=== PATIENT | female | born 1945 | race Caucasian/White ===

== ENCOUNTER → 2019-01-07 11:59 | Outpatient (CLI) | payer MEDICARE, SELFPAY ==
--- NOTE | 2019-01-07 12:45 | DI.CT.S_ITS ---
PROCEDURE: CT ABDOMEN PELVIS WO/W CON INDICATIONS: gross hematuria TECHNIQUE: After the administration of oral contrast, 5 mm thick sections acquired from the diaphragms to the iliac crests. After the administration of intravenous contrast, 5 mm thick sections acquired from the diaphragms to the symphysis. 5 mm thick coronal and sagittal reformats were acquired. For radiation dose reduction, the following was used: automated exposure control, adjustment of mA and/or kV according to patient size. COMPARISON: None. FINDINGS: Image quality: Excellent. ABDOMEN: Lung bases: Lung bases are clear. Heart size is normal. Solid organs: Liver is normal in size and enhancement, but the precontrast imaging through the liver shows generalized moderate fatty infiltration. Splenic calcified granulomas are present, numerous and minute. Gallbladder contains at least 2 large gallstones, one of which measures up to 2.5 cm, peripherally calcified to a small degree. Biliary system is non-dilated. Pancreas enhances normally. Spleen is normal in size and enhancement. No adrenal nodules. Both kidneys are normal in size. No hydronephrosis or nephrolithiasis. No renal cortical mass lesion. Bowel and peritoneum: Stomach, small and large bowel loops are normal in caliber and wall thickness. No free fluid or air. Nodes and vessels: No retroperitoneal or mesenteric adenopathy by size criteria. Aorta and inferior vena are normal in caliber. Miscellaneous: No ventral hernias. PELVIS: Genitourinary: Bladder wall thickness is normal. The bladder contains a 2.4 x 3.4 cm densely calcified calculus centered to the left of midline, with a radiodensity measured at approximately 870 Hounsfield units in the calcified area. A relatively subtle finding is an eccentric protrusions from the left anterior border of this calcification as it abuts the bladder wall on the left laterally. There is mild low attenuation within the midportion of this presents against the bladder wall, and the definite cause for the calcification to be displaced anteriorly from a Terry dependent position is not seen (for example, prostatic hypertrophy with a large median lobe). This raises concern for whether this protuberance represents an adhesion to the bladder wall, which is noted to be asymmetrically thickened on the left in this area, measuring up to 1.3 cm while the bladder wall measures approximately 8 mm on the right in the same area. Miscellaneous: No inguinal hernias or adenopathy. Bones: No suspicious bony lesions. No vertebral body compression fractures. IMPRESSION: 1. There is an unusual finding within the bladder lumen, the presence of a large ovoid calcified structure measuring up to 2.4 x 3.4 cm with an eccentric protuberance along its left lateral border abutting the bladder wall (which is thickened in this area of apparent attachment). It is possible that the bladder wall thickening represents an area of urothelial malignancy with an unusual manifestation of dystrophic calcification having developed and increased in size over time as a result. Please note that the large intraluminal bladder calcification does not layer dependently within the bladder posteriorly, but appears suspended more anteriorly presumably by an adhesion to the area of wall thickening. Cystoscopy appears warranted. 2. Through the urinary tract more superiorly no calculus is found. No urothelial or renal cortical mass is seen. 3. Unrelated to the urinary tract is the finding of 2 moderately large gallstones within the gallbladder lumen without evidence of associated acute cholecystitis or biliary obstruction. Also, there is a finding at the spleen of multiple old calcified granulomas but no active granulomatous disease is suspected. Dictetated by: Jose Mancuso M.D. on 01/07/2019 at 13:52 Approved by: Jose Mancuso M.D. on 01/07/2019 at 14:21
== END ==
PROVIDERS: PCP Family Medicine; Visit Provider Urology
DX: R31.0 Gross hematuria (principal); N32.9 Bladder disorder, unspecified; K80.80 Other cholelithiasis without obstruction
CPT/HCPCS: 74178; Q9967

== ENCOUNTER → 2023-11-06 10:55 | Outpatient (CLI) | payer MEDICARE, SELFPAY ==
--- NOTE | 2023-11-06 10:57 | DI.ECHO.S_ITS ---
[place] [facility] : : [address] : [address] : : [id number] : : Phone: [phone] Echocardiogram Report + + :Name: ELIZABETH VALLES Study Date: 11/06/2023 Height: 63 in : :[facility] ReadingLocation: Weight: 173 lb : : Gender: Female BSA: 1.8 m2 : :: 1945 Age: 78 yrs BP: 146/75 mmHg: :Reason For Study: MURMUR, AORTIC STENOSIS : :Ordering Physician: ARMAAN, : :BRANDI Hoang Performed By: Nevaeh Cevallos : :Referring: BRANDI MORENO : + + Interpretation Summary The ejection fraction is estimated to be 60-65%. Diastolic parameters suggest probable normal left ventricular diastolic function and normal filling pressures. The right ventricle is normal in size and function. There is mild mitral regurgitation. There is mild to moderate aortic stenosis. Pulmonary artery pressures cannot be estimated because of the lack of a measurable TR jet velocity but the IVC suggests a CVP of around 3 mmHg. Procedure: A two-dimensional transthoracic echocardiogram with color flow and Doppler was performed. The study quality was technically adequate. There is no prior echocardiogram noted for this patient. The patient was in sinus rhythm with heart rates between 55-68 bpm during the exam. Left Ventricle: The left ventricle is normal in size and wall thickness. The ejection fraction is estimated to be 60-65%. Diastolic parameters suggest probable normal left ventricular diastolic function and normal filling pressures. Right Ventricle: The right ventricle is normal in size and function. Atria: The left atrial size is normal. Right atrial size is normal. There is no Doppler evidence for an interatrial shunt. Mitral Valve: The mitral valve leaflets appear mildly thickened, but open well. There is mild to moderate mitral annular calcification. There is mild mitral regurgitation. Aortic Valve: The aortic valve is trileaflet. The aortic valve is moderately calcified. There is mild to moderate aortic stenosis. The peak aortic velocity is 2.9 m/sec. The aortic valve mean gradient is 19 mmHg. The calculated aortic valve area is 1.1 cm2. There is trace aortic regurgitation. Tricuspid Valve: The tricuspid valve is normal in structure and function. There is trace tricuspid regurgitation. Pulmonary artery pressures cannot be estimated because of the lack of a measurable TR jet velocity but the IVC suggests a CVP of around 3 mmHg. Pulmonic Valve: The pulmonic valve leaflets are thin and pliable; valve motion is normal. There is trace pulmonic regurgitation. Great Vessels: The aortic root is normal size. The dimensions of the ascending aorta are normal. The IVC is of normal diameter and collapses greater than 50% with a sniff. This suggests a low right atrial pressure of 3 mm Hg. Pericardium/ Pleura There is no pericardial effusion. There is no pleural effusion. MMode/2D Measurements & Calculations LVIDd: 4.4 cm LVOT diam: 2.0 cm LVIDs: 2.8 cm Ao root diam: 2.7 cm FS: 37.1 % asc Aorta Diam: 3.2 cm IVSd: 1.1 cm Ao Arch Diam (Prox Trans): 2.6 cm LVPWd: 0.86 cm LV benson. diameter/BSA (cm/m^2): 2.4 LV sys. diameter/BSA (cm/m^2): 1.5 LA A2 area: 20.1 cm2 RA long axis: 4.8 cm LA A4 area: 19.3 cm2 RA area: 14.6 cm2 LA length (vol): 5.5 cm RA vol: 37.7 ml LA vol: 59.7 ml RA : 20.7 ml/m2 LA vol index: 32.8 ml/m2 IVC diam: 2.1 cm RVD1 (basal): 3.9 cm RVD2 (mid): 2.5 cm TAPSE: 2.4 cm Doppler Measurements & Calculations Ao V2 max: 285.4 cm/sec LVOT Max Daryn: 103.4 cm/sec Ao V2 mean: 205.8 cm/sec LV V1 max P.3 mmHg Ao max P.0 mmHg LV V1 VTI: 27.7 cm Ao mean P.3 mmHg SAMMY(I,D): 1.1 cm2 Ao V2 VTI: 73.4 cm SAMMY(V,D): 1.1 cm2 sev ratio: 0.38 SAMMY indexed to BSA (cm^2/m^2): 0.62 MV E max daryn: 72.9 cm/sec TR max daryn: 243.6 cm/sec MV A max daryn: 97.1 cm/sec TR max P.7 mmHg MV E/A: 0.75 PA V2 max: 111.1 cm/sec Med Peak E' Daryn: 5.4 cm/sec PA V2 mean: 80.8 cm/sec E/E' med: 13.6 PA mean P.8 mmHg Lat Peak E' Daryn: 7.0 cm/sec PA pr(Accel): 19.1 mmHg E/E' lat: 10.4 E/e' average: 12.0 MV dec time: 0.29 sec SV(LVOT): 82.9 ml Reading Physician:11:43 AM
== END ==
LOC: ECHO 10:56
PROVIDERS: PCP Nurse Practitioner Family; Referring Provider Internal Medicine Cardiovascular Disease; Visit Provider Internal Medicine Cardiovascular Disease
DX: I08.0 Rheumatic disorders of both mitral and aortic valves (principal)
CPT/HCPCS: 93306

== ENCOUNTER → 2024-07-27 10:54 | Outpatient (CLI) | payer MEDICARE, SELFPAY ==
--- NOTE | 2024-07-27 10:57 | DI.ECHO.S_ITS ---
[place] [facility]---------+ [facility] : : [address] : [address] : : [id number] : : Phone: [phone] Echocardiogram Report + + :Name: ELIZABETH VALLES Study Date: 07/27/2024 Height: 63 in : :[facility] ReadingLocation: Weight: 170 lb : : Gender: Female BSA: 1.8 m2 : :: 1945 Age: 79 yrs BP: 154/76 mmHg: :Reason For Study: AORTIC VALVE STENOSIS : :Ordering Physician: ARMAAN, : :BRANDI Hoang Performed By: Ren Mann : :Referring: BRANDI MORENO : + + Interpretation Summary The ejection fraction is estimated to be 65-70%. Grade II diastolic dysfunction. The left atrium is moderately dilated. The right ventricle is normal in size and function. There is moderate aortic stenosis. There is mild to moderate tricuspid regurgitation. The right ventricular systolic pressure is estimated to be at least 40 mmHg based on an estimated right atrial pressure of 3 mm Hg. Compared to the prior study 11/06/2023, the aortic valve gradient has increased. Procedure: A two-dimensional transthoracic echocardiogram with color flow and Doppler was performed. The study quality was technically good. Comparison is made with the echocardiogram of 11/06/2023. The patient was in normal sinus rhythm during the exam. Left Ventricle: The left ventricle is normal in size. Left ventricular wall thickness is borderline increased. There is no ventricular septal defect visualized. The ejection fraction is estimated to be 65-70%. There are no focal wall motion abnormalities. Diastolic parameters suggest a pseudonormalization pattern, consistent with probable elevated filling pressures. Right Ventricle: The right ventricle is normal in size and function. Atria: The left atrium is moderately dilated. The right atrium is borderline dilated. There is no Doppler evidence for an interatrial shunt. Mitral Valve: There is moderate mitral annular calcification. There is trace mitral regurgitation. Aortic Valve: The aortic valve is trileaflet. The aortic valve is mildly calcified. There is moderately reduced leaflet mobility. There is moderate aortic stenosis. The peak aortic velocity is 3.2 m/sec. The aortic valve mean gradient is 24.3 mmHg. The calculated aortic valve area is 1.3 cm2. There is trace aortic regurgitation. Tricuspid Valve: The tricuspid valve leaflets are thin and pliable. There is mild to moderate tricuspid regurgitation. The right ventricular systolic pressure is estimated to be at least 40 mmHg based on an estimated right atrial pressure of 3 mm Hg. Pulmonic Valve: The pulmonic valve is not well seen, but is grossly normal. There is trace pulmonic regurgitation. Great Vessels: The aortic root is normal size. The dimensions of the ascending aorta are normal. The pulmonary artery is normal size. The IVC is of normal diameter and collapses greater than 50% with a sniff. This suggests a low right atrial pressure of 3 mm Hg. Pericardium/ Pleura There is no pericardial effusion. There is no pleural effusion. MMode/2D Measurements & Calculations LVIDd: 4.3 cm LVOT diam: 2.1 cm LVIDs: 2.4 cm Ao root diam: 2.9 cm FS: 44.3 % asc Aorta Diam: 3.2 cm EPSS: 0.66 cm Ao Arch Diam (Prox Trans): 3.0 cm IVSd: 1.1 cm LVPWd: 1.1 cm LV benson. diameter/BSA (cm/m^2): 2.4 LV sys. diameter/BSA (cm/m^2): 1.3 LA A2 area: 22.2 cm2 RA long axis: 5.1 cm LA A4 area: 24.3 cm2 RA area: 16.7 cm2 LA length (vol): 6.2 cm RA vol: 46.6 ml LA vol: 74.4 ml RA : 25.8 ml/m2 LA vol index: 41.2 ml/m2 IVC diam: 1.6 cm RVD1 (basal): 3.3 cm RVD2 (mid): 2.8 cm TAPSE: 2.6 cm Doppler Measurements & Calculations Ao V2 max: 320.3 cm/sec LVOT Max Daryn: 108.6 cm/sec Ao V2 mean: 234.7 cm/sec LV V1 max P.7 mmHg Ao max P.0 mmHg LV V1 VTI: 31.1 cm Ao mean P.3 mmHg SAMMY(I,D): 1.4 cm2 Ao V2 VTI: 79.5 cm SAMMY(V,D): 1.2 cm2 sev ratio: 0.39 SAMMY indexed to BSA (cm^2/m^2): 0.78 MV E max daryn: 85.6 cm/sec TR max daryn: 303.2 cm/sec MV A max daryn: 106.1 cm/sec TR max P.8 mmHg MV E/A: 0.81 PA V2 max: 86.0 cm/sec Med Peak E' Daryn: 5.1 cm/sec PA V2 mean: 65.3 cm/sec E/E' med: 16.9 PA mean P.9 mmHg Lat Peak E' Daryn: 7.9 cm/sec PA pr(Accel): 34.5 mmHg E/E' lat: 10.9 E/e' average: 13.9 MV dec time: 0.26 sec SV(LVOT): 112.6 ml Reading Physician:11:18 AM
== END ==
PROVIDERS: PCP Nurse Practitioner Family; Referring Provider Internal Medicine Cardiovascular Disease; Visit Provider Internal Medicine Cardiovascular Disease
DX: I08.3 Combined rheumatic disorders of mitral, aortic and tricuspid valves (principal)
CPT/HCPCS: 93306